=== PATIENT | male | born 1975 | race Caucasian/White ===

== ENCOUNTER 2019-03-01 14:31 | Emergency (ER) | payer BC ==
[~2019-03-01] VITALS: Ht 182.9 cm; Wt 117.0 kg
[2019-03-01 14:31] VITALS: BP 150/90
--- NOTE | 2019-03-01 14:54 | PHYS DOC ---
Past History Past Medical History: Hypotension Past Surgical History: No Surgical History Smoking: Cigarettes, Less than 1pk/day Alcohol Use: Occasionally Drug Use: None Adult General Chief Complaint Chief Complaint: LACERATION/AVULSION HPI HPI Patient is a 43-year-old male presents with right great toe injury. Patient was mowing his lawn when he slipped and then the lawnmower rolled backwards over his foot. Patient was wearing a shoe when this happened. Patient is uncertain as to when his last tetanus shot was. Reports that there is not much pain currently. N o radiation of the discomfort.[] Review of Systems Review of Systems Constitutional: Denies fever or chills [] Eyes: Denies change in visual acuity, redness, or eye pain [] HENT: Denies nasal congestion or sore throat [] Respiratory: Denies cough or shortness of breath [] Cardiovascular: No chest pain or palpitations[] GI: Denies abdominal pain, nausea, vomiting, bloody stools or diarrhea [] : Denies dysuria or hematuria [] Musculoskeletal: Denies back pain, see history of present illness[] Integument: Denies rash or skin lesions [] Neurologic: Denies headache, focal weakness or sensory changes [] Endocrine: Denies polyuria or polydipsia [] All other systems were reviewed and found to be within normal limits, except as documented in this note. Current Medications Current Medications Current Medications Medications (Trade) Dose Ordered Sig/Riya Start Time Stop Time Status Last Admin Dose Admin Cefazolin Sodium 1 gm/Sodium Chloride 50 ml @ 100 mls/hr 1X ONCE 03/01/19 14:45 03/01/19 15:14 UNV Morphine Sulfate (Morphine 4mg Syringe) 4 mg 1X ONCE 03/01/19 14:45 03/01/19 14:46 UNV Allergies Allergies Allergies Coded Allergies Type Severity Reaction Last Updated Verified No Known Drug Allergies 03/01/19 No Physical Exam Physical Exam Constitutional: Well developed, well nourished, no acute distress, non-toxic appearance. [] HENT: Normocephalic, atraumatic, bilateral external ears normal, oropharynx m oist, no oral exudates, nose normal. [] Eyes: PERRLA, EOMI, conjunctiva normal, no discharge. [] Neck: Normal range of motion, no tenderness, supple, no stridor. [] Cardiovascular:Heart rate regular rhythm, no murmur [] Lungs & Thorax: Bilateral breath sounds clear to auscultation [] Abdomen: Bowel sounds normal, soft, no tenderness, no masses, no pulsatile masses. [] Skin: Warm, dry, no erythema, no rash. [] Back: No tenderness, no CVA tenderness. [] Extremities: Right great toe has a complex laceration involving the distal phalanx, involving the nailbed as well as the plantar surface. There is no other tenderness. A joint above was evaluated and was normal. The other 3 extremities show: No tenderness, no cyanosis, no clubbing, ROM intact, no edema. [] Neurologic: Alert and oriented X 3, normal motor function, normal sensory function, no focal deficits noted. [] Psychologic: Affect normal, judgement normal, mood normal. [] EKG EKG [] Radiology/Procedures Radiology/Procedures PROCEDURE: FOOT RIGHT 3V Three-view right foot study Clinical indications: Lawnmower accident of great toe. FINDINGS: There is a severely comminuted fracture of the distal metaphysis and epiphysis of the first distal phalanx with associated soft tissue injury and radiopaque debris within the soft tissues. No dislocation or lytic process is seen elsewhere. Prominent plantar spur of the calcaneus is evident. IMPRESSION: Comminuted fracture of the first distal phalanx.[] Course & Med Decision Making Course & Med Decision Making Pertinent Labs and Imaging studies reviewed. (See chart for details) ED course: Patient arrived, was placed in bed, and tolerated exam well. IV access was established and he was given IV antibiotics as well as updated of his tetanus vaccination status. The wound was copiously irrigated. Consultation was made with orthopedic surgery who believes that the patient could be treated via outpatient surgery. His nothing by mouth status was assessed and was noted to be approximately 3 hours prior. Patient is here with family who will be driving him to [place]. Additional consultation was made with Dr. Brnedan lundberg at [facility] who also has privileges at [place] in case the patient needs to be admitted for further care. Medical decision making: Patient has a comminuted fracture of his right distal great toe that needs additional care beyond what is capable of being provided at [facility]. Believe that he is stable for transfer by [facility] and is here to take the patient to [place].[] Dragon Disclaimer Dragon Disclaimer This electronic medical record was generated, in whole or in part, using a voice recognition dictation system. Departure Departure: Impression: Primary Impression: Open fracture of right great toe Disposition: 05 TRANSFER OTHER Condition: IMPROVED Referrals: JASWINDER PAULINO MD (PCP) Problem Qualifiers Primary Impression: Open fracture of right great toe Encounter type: initial encounter Phalanx: distal Fracture alignment: displaced Qualified Codes: S92.421B - Displaced fracture of distal phalanx of right great toe, initial encounter for open fracture ASHIA JULIEN DO March 01, 2019 14:54
[2019-03-01] MEDS ORDERED: MORPHINE SULFATE 4 MG/ML DISP.SYRIN. IV ONE (15:00)
[2019-03-01] MEDS ORDERED: DIPHTH,PERTUSS(ACELL),TET TOX 0.5 ML DISP.SYRIN. VAX IM ONE (15:00)
[2019-03-01] MEDS ORDERED: ceFAZolin SODIUM 1 GM VIAL ONE (15:02)
[2019-03-01] MEDS ORDERED: IV NORMAL SALINE 50ML 50 ML ONE ×2 (15:02→15:16)
--- NOTE | 2019-03-01 15:10 | RAD ---
Three-view right foot study Clinical indications: Lawnmower accident of great toe. FINDINGS: There is a severely comminuted fracture of the distal metaphysis and epiphysis of the first distal phalanx with associated soft tissue injury and radiopaque debris within the soft tissues. No dislocation or lytic process is seen elsewhere. Prominent plantar spur of the calcaneus is evident. IMPRESSION: Comminuted fracture of the first distal phalanx. Electronically signed by: Lopez Emerson MD (03/01/2019 3:07 PM) [facility]
[2019-03-01 15:59] LABS: BASO % 1 % (0-3); EOS # 0.1 x10^3/uL (0.0-0.7); EOS % 2 % (0-3); HEMATOCRIT 40.4 % (39.0-53.0); HEMOGLOBIN 13.8 g/dL (13.0-17.5); LYMPH % 27 % (24-48); MEAN CORPUSCULAR HEMOGLOBIN 29 pg (25-35); MEAN CORPUSCULAR HGB CONC 34 g/dL (31-37); MEAN CORPUSCULAR VOLUME 86 fL (79-100); MONO # 0.3 x10^3/uL (0.0-1.1); MONO % 7 % (0-9); NEUT # 2.4 x10^3uL (1.8-7.7); NEUT % 64 % (31-73); PLATELET COUNT 150 x10^3/uL (140-400); RED BLOOD COUNT 4.68 x10^6/uL (4.30-5.70); RED CELL DISTRIBUTION WIDTH 13.9 % (11.5-14.5); WHITE BLOOD COUNT 3.8 x10^3/uL (4.0-11.0)
[2019-03-01 16:13] LABS: ALBUMIN 3.7 g/dL (3.4-5.0); ALBUMIN/GLOBULIN RATIO 1.5 (1.0-1.7); CALCIUM 8.4 mg/dL (8.5-10.1); CREATININE 0.8 mg/dL (0.7-1.3); POTASSIUM 3.7 mmol/L (3.5-5.1); TOTAL BILIRUBIN 0.6 mg/dL (0.2-1.0); TOTAL PROTEIN 6.2 g/dL (6.4-8.2)
== END 2019-03-01 16:05 | disposition short-term general hospital (02) ==
LOC: ER 14:31
DX: S92.421B Displaced fracture of distal phalanx of right great toe, initial encounter for open fracture (principal); I10 Essential (primary) hypertension; F17.210 Nicotine dependence, cigarettes, uncomplicated; W31.89XA Contact with other specified machinery, initial encounter; Y93.89 Activity, other specified; Y92.89 Other specified places as the place of occurrence of the external cause; Y99.8 Other external cause status
CPT/HCPCS: 36415; 73630; 80053; 85025; 85610; 90471; 90715; 96365; 96375; 99285; J0690; J2270